=== PATIENT | male | born 1955 | race Caucasian/White ===

== ENCOUNTER → 2021-10-23 10:34 | Outpatient (BNVA) | payer OTHER, SELFPAY | PROVIDERS: Family Provider Family Medicine; Visit Provider Internal Medicine Cardiovascular Disease | DX: I10 Essential (primary) hypertension (principal); E11.9 Type 2 diabetes mellitus without complications; K21.9 Gastro-esophageal reflux disease without esophagitis; R25.1 Tremor, unspecified; N52.9 Male erectile dysfunction, unspecified; F17.210 Nicotine dependence, cigarettes, uncomplicated | CPT/HCPCS: 99204 ==

== ENCOUNTER → 2022-02-19 13:39 | Outpatient (BNVA) | payer OTHER, SELFPAY | PROVIDERS: Family Provider Family Medicine; PCP Family Medicine; Visit Provider Internal Medicine Cardiovascular Disease | DX: I10 Essential (primary) hypertension (principal); F17.210 Nicotine dependence, cigarettes, uncomplicated | CPT/HCPCS: 99213; 99214 ==

== ENCOUNTER 2025-01-09 09:45 | Oncology outpatient (recurring) (ONCR) | payer OTHER, SELFPAY ==
[2025-01-03 11:14] LABS: Hematocrit 45.7 % (37-53); Hemoglobin 15.40 g/dL (11.27-16.99); Mean Corpuscular HGB Conc 33.7 g/dL (30-55); Mean Corpuscular Hemoglobin 30.0 pg (27-33); Mean Corpuscular Volume 89.1 fl (82-101); Nucleated Red Blood Cells % 0 %; Platelet Count 281 10^3/cmm (157-399); Red Blood Count 5.13 10^6/uL (3.85-5.65); White Blood Count 8.90 10^3/uL (3.29-11.43)
[2025-01-03 11:33] LABS: Alanine Aminotransferase 16 U/L (0-41); Albumin Level 4.4 g/dL (3.5-5.2); Alkaline Phosphatase 66 U/L (40-130); Aspartate Amino Transferase 12 U/L (0-40); Blood Urea Nitrogen 19 mg/dL (8-23); Calcium 9.5 mg/dL (8.5-10.5); Carbon Dioxide 24 mmol/L (22-29); Chloride 104 mmol/L (98-107); Creatinine Clr Calc Pharmacy 81.2118; Ferritin 311 ng/mL (30-400); Globulin 3.0 g/dL (1.3-4.6); Glucose 112 mg/dL (65-115); Iron 95 ug/dL (59-158); Osmolality Calculated 291 mOsm/kg (285-295); Sodium 139 mmol/L (136-145); Total Iron Binding Capacity 299 mcg/dl; Total Protein 7.4 g/dL (6.6-8.7); Unsaturated Iron Binding 204 ug/dL (112-347)
[2025-01-03 11:37] LABS: Anion Gap 15.3 (5-19); Potassium 4.3 mmol/L (3.5-5.1)
[2025-01-03 11:49] LABS: Vitamin B12 498 pg/mL (232-1245)
[2025-01-03 12:48] LABS: Carcinoembryonic Antigen 3.0 ng/mL (0.0-4.7)
--- NOTE | 2025-01-09 08:27 | CT_ITS ---
WS: [id number] CT CHEST, ABDOMEN AND PELVIS WITH CONTRAST HISTORY: MALIGNANT NEOPLASM OF TRANSVERSE COLON TECHNIQUE: Contiguous 5 mm axial imaging performed through the chest, abdomen and pelvis with IV contrast, oral contrast has been provided. Coronal and sagittal reformats chest. Coronal and sagittal reformats through the abdomen and pelvis. All CT scans at [facility] use at least one of these dose optimization techniques: automated exposure control; mA and/or kV adjustment per patient size (includes targeted exams where dose is matched to clinical indication); or iterative reconstruction. CONTRAST: Omnipaque 350; 100 mL IV. DLP: 1221.75 mGy COMPARISON: 11/16/2024 and 10/26/[address]: Mild pulmonary hyperexpansion. No change in the 3 mm noncalcified nodule RIGHT lower lobe, image 40 series 4. No change in the small subcentimeter LEFT perifissural nodules. There is no dominant mass. No pneumonia. Normal size aorta and pulmonary artery. RIGHT suprahilar lymph node 10 mm. No adenopathy. No destructive bone lesions. Hypertrophic RIGHT lateral osteophytes in the midthoracic spine. No destructive bone lesions. Abdomen CT: Normal size liver. Patient has known small cyst scattered throughout the liver. These are reidentified as described on 10/26/2024 and a prior MRI from 11/14/2024. No metastatic lesions. Cholelithiasis without acute cholecystitis. Normal pancreas and spleen. Very mild thickening of each adrenal gland. Bilateral perinephric stranding with no obstruction. There are too small to characterize cortical hypodensities in each kidney. Mild atherosclerosis aorta. No ascites and no adenopathy. Stomach is not distended. No small bowel obstruction. Transverse colon anastomosis appears intact. There is mild fat stranding at the anastomotic site which may be due to the recent post surgery. There is no obstruction or mass. Fat-containing umbilical hernia. Pelvic CT: No ascites or adenopathy. Minimally distended urinary bladder. Prostate gland is heterogeneous with mild enlargement. Degenerative changes in the lumbar spine. Degenerative joint disease at the hips. No destructive lytic or blastic lesions identified. CT/CT chest abdpel w/*[id number] IMPRESSION: 1. No evidence for metastatic disease to the lungs. There are a few small nodu les which were also present on the prior study from 11/16/2024 with no change. 2. No lymphadenopathy in the chest, abdomen or pelvis. 3. Stable hepatic cyst. No metastatic disease to the liver. 4. Mild bilateral adrenal gland hyperplasia, similar to the prior study of 10/26. 5. Transverse colon surgical anastomosis appears intact. There is mild pericol onic fat stranding which is probably related to the recent surgery. No complica tions are evident. 6. No ascites. 7. Cholelithiasis without acute cholecystitis.
[2025-01-09] MEDS: iohexol 350 mg/mL 500 mL Btl (per mL) PO (09:44)
[2025-01-09] MEDS: iohexol 350 mg/mL 500 mL Btl (per mL) IV (09:45)
== END 2025-01-23 23:59 | disposition home or self-care (01) ==
PROVIDERS: PCP Family Medicine; Visit Provider Internal Medicine
DX: C18.4 Malignant neoplasm of transverse colon (principal); R91.8 Other nonspecific abnormal finding of lung field; K76.89 Other specified diseases of liver; E27.8 Other specified disorders of adrenal gland; Z98.890 Other specified postprocedural states; K80.20 Calculus of gallbladder without cholecystitis without obstruction; R59.0 Localized enlarged lymph nodes; M25.78 Osteophyte, vertebrae; R93.89 Abnormal findings on diagnostic imaging of other specified body structures; N28.9 Disorder of kidney and ureter, unspecified; I70.0 Atherosclerosis of aorta; K42.9 Umbilical hernia without obstruction or gangrene; N40.0 Benign prostatic hyperplasia without lower urinary tract symptoms; M51.369 Other intervertebral disc degeneration, lumbar region without mention of lumbar back pain or lower extremity pain; M16.0 Bilateral primary osteoarthritis of hip; Z53.9 Procedure and treatment not carried out, unspecified reason
CPT/HCPCS: 36415; 71260; 74177; 80053; 82378; 82607; 82728; 82746; 83010; 83540; 83550; 83615; 85025; 85045; 99204

== ENCOUNTER → 2025-01-15 14:03 | Outpatient (BNVA) | payer OTHER, SELFPAY | PROVIDERS: PCP Family Medicine; Visit Provider Student in an Organized Health Care Education/Training Program | DX: Z95.828 Presence of other vascular implants and grafts (principal); R03.0 Elevated blood-pressure reading, without diagnosis of hypertension | CPT/HCPCS: 99204 ==

== ENCOUNTER 2025-01-17 09:43 | Day surgery (SDC) | payer OTHER, SELFPAY ==
[2025-01-17] VITALS (7 sets, daily range): BP systolic 110–133; BP diastolic 50–66; PULSE 43–59; RESP 14–18; TEMP 36.2–36.8; O2SAT 95–100; BMI 29.4
--- NOTE | 2025-01-17 09:56 | SC_ITS ---
WS: [id number] Exam: C-arm FL for CVA [id number] Date/Time of Exam: 01/17/2025 9:56 AM Reason For Exam: Port placement DLP: AP C-arm image of the upper RIGHT chest is submitted for evaluation. The image depicts a RIGHT subclavian port ending in the lower one third of the SVC. No other significant finding on this limited study.
--- NOTE | 2025-01-17 10:29 | ANES.PREANE2 ---
Pre-Anesthetic Assessment Height/Weight: Height 1.88 m Weight 103.873 kg Temp Pulse Resp BP Pulse Ox O2 Del Method 97.4 F L 43 L 17 121/63 97 Room Air 01/17/25 10:01/17/25 10:01/17/25 10:01/17/25 10:01/17/25 10:01/17/25 10:12 Operation Date: 01/17/25 12:15 Proposed Procedures p Port a Cath Insertion [id number] Z95.828 C18.4(Not Applicable) - Dre Yeager MD Familial anesthetic complications: None Was Beta Iman taken within 24 hours: N/A Was Clonidine taken within 24 hours: N/A Last intake: > 8 hrs Social No alcohol and No tobacco Exam alert, oriented x 3, clear to auscultation bilaterally and regular rate & rhythm Airway Mallampati: Class III Dentition: full CV/HEM Hypertension GI Gastroesophageal Reflux Disease colon resection Metabolic Diabetes Mellitus and Morbid Obesity Neuropsych tremor Anesthetic Plan ASA status: 4 Anesthesia: MAC Risk of > 500 ml blood loss (7ml/kg in children): No Medications/Allergies Home Medications ?Medication ?Instructions ?Recorded ?Confirmed ?Last Taken ?Type omeprazole 20 mg capsule,delayed 20 mg PO DAILY 06/11/21 01/16/25 Unknown History release antiarthritic combination no.2 900 900 mg PO DAILY 10/23/21 01/16/25 01/16/25 History mg tablet (glucosamine-chondroitin) cholecalciferol (vitamin D3) 25 25 mcg PO DAILY 10/23/21 01/16/25 01/16/25 History mcg (1,000 unit) capsule garlic 5,000 mcg tablet 5 mg PO DAILY 10/23/21 01/16/25 01/16/25 History hydrochlorothiazide 25 mg tablet 12.5 mg PO BID 10/23/21 01/16/25 01/16/25 History lisinopril 20 mg tablet 40 mg PO DAILY 10/23/21 01/16/25 01/16/25 History omega-3 fatty acids 1,000 mg 1,000 mg PO DAILY 10/23/21 01/16/25 Unknown History capsule prenat.vits,lfaco,dag-zpvx-afslo 1 tab PO DAILY 10/23/21 01/16/25 Unknown History sildenafil 100 mg tablet 100 mg PO DAILY PRN activy 10/23/21 01/16/25 Unknown History zinc 50 mg tablet 50 mg PO DAILY 10/23/21 01/16/25 Unknown History ibuprofen 200 mg tablet 200 mg PO Q6H PRN Pain 02/19/22 01/16/25 Unknown History propranolol 40 mg tablet 20 mg PO BID 02/19/22 01/17/25 01/17/25 History vitamins A,C,M-ausb-pdvcfu 4,296 1 cap PO DAILY 02/19/22 01/16/25 Unknown History mcg-226 mg-90 mg capsule (ICaps AREDS) atorvastatin 40 mg tablet (Lipitor) 40 mg PO DAILY 01/03/25 01/16/25 01/16/25 History metformin 1,000 mg tablet 1,000 mg PO BID 01/03/25 01/16/25 01/16/25 History ondansetron HCl 4 mg tablet 4 mg PO Q6H PRN nausea and 01/03/25 01/16/25 Unknown Rx vomiting #30 tabs prochlorperazine maleate 10 mg 10 mg PO Q4H PRN mild nausea #30 01/03/25 01/16/25 Unknown Rx tablet (Compazine) tabs Allergies Allergy/AdvReac Type Severity Reaction Status Date / Time No Known Allergies Allergy Verified 01/17/25 10:03 Current Medications Generic Name Dose Route Start Last Admin Trade Name Freq PRN Reason Stop Dose Admin Sodium Chloride 1,000 mls @ 30 mls/hr 01/17/25 10:00 01/17/25 10:29 Sodium Chloride 0.9% IV 01/18/25 09:59 30 mls/hr .Q24H YAMILET Administration PFSH Anesthesia Medical History (Updated 01/15/25 @ 14:19 by RODDY Ornelas) History of cellulitis Tremor Erectile dysfunction Diabetes mellitus HTN (hypertension) GERD (gastroesophageal reflux disease) Surgical History (Updated 01/16/25 @ 11:16 by Belen Palma RN) S/P vasectomy No pertinent past surgical history Family History Mother Cardiac murmur, unspecified Congestive heart failure (CHF) Diabetes Father Hypertension Diabetes Family/Other Diabetes CAD (coronary artery disease) Social History Smoking and tobacco/nicotine status: current every day tobacco/nicotine user cigarettes Packs smoked per day: 2 Years cigarettes smoked: 20
--- NOTE | 2025-01-17 10:37 | W.PM.OPSUD ---
Surgery/Procedure H&P Update DATE OF PROCEDURE: January 17, 2025 DATE H&P PERFORMED: 01/15/25 H&P UPDATE INFORMATION: I have reviewed H&P completed within last 30 days, I have examined patient prior to procedure and No changes to prior documentation PLANNED PROCEDURE: Operation Date: 01/17/25 12:15 Proposed Procedures p Port a Cath Insertion [id number] Z95.828 C18.4(Not Applicable) - Dre Yeager MD
[2025-01-17] MEDS: ceFAZolin 2,000 mg SDV 2000 MG IVP (11:04)
[2025-01-17] MEDS: heparin, porcine 1,000 unit/mL INJ 10 mL 6000 UNIT XX (11:42)
--- NOTE | 2025-01-17 11:43 | P.OP_ITS ---
Operative Report Date of procedure: January 17, 2025 Pre-op diagnosis: Colon cancer Post-op diagnosis: same Post-op findings: Tip of catheter at atriocaval junction confirmed with intraoperative fluoroscopy Procedure done: Port-A-Cath placement Implants: N/A Specimens removed/disposition: N/A Pathology: none sent Surgeon: Dre Yeager MD Tar Man: N/A Anesthesia: MAC Estimated blood loss (mL): 10 Complications: N/A Findings: Tip of catheter at atriocaval junction confirmed with intraoperative fluoroscopy Condition: stable Disposition: same day Brief History: 69-year-old male who presented for Port-A-Cath placement. Needs it for chemotherapy administration. Discussed risk and benefits and patient agreed to proceed with Port-A-Cath placement. Procedure: Patient was brought into the operating room and a timeout was carried out. Procedure was done under MAC. Patient was placed supine with the arms tucked and in Trendelenburg. Patient was prepped and draped in the usual sterile fashion. Using ultrasound guidance the right internal jugular vein was accessed. A guidewire was then placed down to the atriocaval junction using fluoroscopy. The finder needle was removed and the guidewire was secured. I then turned my attention to creating a pocket over the right chest. Make sure to locally infiltrated using plain lidocaine and bupivacaine at the site of the pocket and throughout the tunnel site. I confirmed adequate hemostasis at the pocket. I then proceeded to place the port that was already preassembled and flushed with heparinized saline and the chest pocket. I tunneled the catheter from the chest to the neck at the site where I accessed the internal jugular vein. I measured and adjusted the length of the catheter so it would reach the atrial caval junction. At this point, I used a dilator to dilate the tract into the internal jugular vein using fluoroscopy. I removed the guidewire and proceeded to thread the central venous catheter through the introducer. In the process, I removed the sheath as a completely pushed the catheter into the internal jugular vein. I then confirmed adequate placement of the catheter by performing intraoperative interpretation of fluoroscopy. The tip of the catheter was confirmed to be placed in the atriocaval junction. There were no kinks noted throughout the trajectory of the catheter. I then proceeded to test the port and was satisfied with its functionality. I proceeded to flushed the catheter without any issues. I then hep-locked the port. Skin was closed using deep dermal 3-0 Vicryl, subcuticular 4-0 Monocryl, and Dermabond. Patient was then transferred to PACU without any complications.
[2025-01-17] MEDS: lidocaine-epi 1% 20 mL INJ 10 ML INJECTION (11:44)
[2025-01-17] MEDS: BUPivacaine 0.25% INJ 10 mL INJECTION (11:44)
--- NOTE | 2025-01-17 12:40 | ANE.PACU2 ---
Inpatient post-anesthesia follow up: Airway intact: Yes Vital signs: Temperature 97.2 F Pulse Rate 45 Respiratory Rate 17 Blood Pressure 122/65 Pulse Oximetry 100 Oxygen Delivery Me thod Room Air Oxygen Flow Rate 6 Fraction of Inspir ed Oxygen Hydration adequate: Yes Nausea and vomiting: No Pain level: 1 Mental status: Baseline
== END 2025-01-17 12:44 | disposition home or self-care (01) ==
PROVIDERS: PCP Family Medicine; Visit Provider Student in an Organized Health Care Education/Training Program
PROC: (CPT 36561; principal; 2025-01-17 12:05)
DX: C18.9 Malignant neoplasm of colon, unspecified (principal); K21.9 Gastro-esophageal reflux disease without esophagitis; I10 Essential (primary) hypertension; E11.9 Type 2 diabetes mellitus without complications; E66.01 Morbid (severe) obesity due to excess calories; Z68.29 Body mass index [BMI] 29.0-29.9, adult; Z79.84 Long term (current) use of oral hypoglycemic drugs; F17.210 Nicotine dependence, cigarettes, uncomplicated
CPT/HCPCS: 36561; 36416; 76000; 77001; 82962; C1788; J0690; J1644; J2704; J3010; J3490; J7030; J9999

== ENCOUNTER → 2025-01-29 10:25 | Outpatient (BNVA) | payer OTHER, SELFPAY | PROVIDERS: PCP Family Medicine; Visit Provider Student in an Organized Health Care Education/Training Program | DX: Z98.890 Other specified postprocedural states (principal) | CPT/HCPCS: 99024 ==

== ENCOUNTER 2025-02-23 11:00 | Oncology outpatient (recurring) (ONCR) | payer OTHER, SELFPAY ==
[2025-01-24 08:02] LABS: Hematocrit 45.4 % (37-53); Hemoglobin 15.00 g/dL (11.27-16.99); Mean Corpuscular HGB Conc 33.0 g/dL (30-55); Mean Corpuscular Hemoglobin 29.2 pg (27-33); Mean Corpuscular Volume 88.3 fl (82-101); Nucleated Red Blood Cells % 0 %; Platelet Count 261 10^3/cmm (157-399); Red Blood Count 5.14 10^6/uL (3.85-5.65); White Blood Count 7.67 10^3/uL (3.29-11.43)
[2025-01-24 08:34] LABS: Carcinoembryonic Antigen 3.5 ng/mL (0.0-4.7)
[2025-01-24 08:46] LABS: Alanine Aminotransferase 16 U/L (0-41); Albumin Level 4.5 g/dL (3.5-5.2); Alkaline Phosphatase 64 U/L (40-130); Anion Gap 16.4 (5-19); Aspartate Amino Transferase 14 U/L (0-40); Blood Urea Nitrogen 16 mg/dL (8-23); Calcium 9.3 mg/dL (8.5-10.5); Carbon Dioxide 25 mmol/L (22-29); Chloride 103 mmol/L (98-107); Creatinine Clr Calc Pharmacy 81.5985; Globulin 2.7 g/dL (1.3-4.6); Glucose 125 mg/dL (65-115); Osmolality Calculated 293 mOsm/kg (285-295); Potassium 4.4 mmol/L (3.5-5.1); Sodium 140 mmol/L (136-145); Total Protein 7.2 g/dL (6.6-8.7)
[2025-01-24] MEDS: dexamethasone 4 mg/mL INJ 5 mL 12 MG IVP (10:49)
[2025-01-24] MEDS: leucovorin 910 MG in dextrose 5% 250 ML 85.25 MG IV (11:25)
[2025-01-24] MEDS: oxaliplatin 192 MG in dextrose 5% 250 ML 144.2 MG IV (11:26)
[2025-01-24] MEDS: fluorouraciL 50 mg/ml MDV 100 mL 900 MG IVP (13:56)
[2025-01-24] MEDS: fluorouraciL 5,450 MG, elastomeric pump 1 PUMP in sodium chloride 0.9% (100 ml) 121 ML IV (14:07)
[2025-01-24 14:14] VITALS: BP 131/72; PULSE 53; RESP 17; TEMP 36.8; O2SAT 96
[2025-01-31 12:55] LABS: Hematocrit 44.2 % (37-53); Hemoglobin 14.80 g/dL (11.27-16.99); Mean Corpuscular HGB Conc 33.5 g/dL (30-55); Mean Corpuscular Hemoglobin 30.1 pg (27-33); Mean Corpuscular Volume 90.0 fl (82-101); Nucleated Red Blood Cells % 0 %; Platelet Count 256 10^3/cmm (157-399); Red Blood Count 4.91 10^6/uL (3.85-5.65); White Blood Count 8.24 10^3/uL (3.29-11.43)
[2025-01-31 13:12] LABS: Alanine Aminotransferase 16 U/L (0-41); Albumin Level 4.4 g/dL (3.5-5.2); Alkaline Phosphatase 67 U/L (40-130); Aspartate Amino Transferase 14 U/L (0-40); Blood Urea Nitrogen 21 mg/dL (8-23); Calcium 9.0 mg/dL (8.5-10.5); Carbon Dioxide 23 mmol/L (22-29); Chloride 103 mmol/L (98-107); Creatinine Clr Calc Pharmacy 81.3788; Globulin 2.5 g/dL (1.3-4.6); Glucose 162 mg/dL (65-115); Osmolality Calculated 291 mOsm/kg (285-295); Sodium 137 mmol/L (136-145); Total Protein 6.9 g/dL (6.6-8.7)
[2025-01-31 13:23] LABS: Anion Gap 15.0 (5-19); Potassium 4.0 mmol/L (3.5-5.1)
[2025-02-07 08:25] LABS: Hematocrit 41.8 % (37-53); Hemoglobin 13.90 g/dL (11.27-16.99); Mean Corpuscular HGB Conc 33.3 g/dL (30-55); Mean Corpuscular Hemoglobin 29.2 pg (27-33); Mean Corpuscular Volume 87.8 fl (82-101); Nucleated Red Blood Cells % 0 %; Platelet Count 229 10^3/cmm (157-399); Red Blood Count 4.76 10^6/uL (3.85-5.65); White Blood Count 7.60 10^3/uL (3.29-11.43)
[2025-02-07 08:44] LABS: Alanine Aminotransferase 19 U/L (0-41); Albumin Level 4.2 g/dL (3.5-5.2); Alkaline Phosphatase 65 U/L (40-130); Anion Gap 17.3 (5-19); Aspartate Amino Transferase 16 U/L (0-40); Blood Urea Nitrogen 18 mg/dL (8-23); Calcium 9.1 mg/dL (8.5-10.5); Carbon Dioxide 23 mmol/L (22-29); Chloride 101 mmol/L (98-107); Creatinine Clr Calc Pharmacy 74.5972; Globulin 2.6 g/dL (1.3-4.6); Glucose 118 mg/dL (65-115); Osmolality Calculated 287 mOsm/kg (285-295); Potassium 4.3 mmol/L (3.5-5.1); Sodium 137 mmol/L (136-145); Total Protein 6.8 g/dL (6.6-8.7)
[2025-02-07] MEDS: dexamethasone 4 mg/mL INJ 5 mL 12 MG IVP (09:45)
[2025-02-07] MEDS: leucovorin 910 MG in dextrose 5% 250 ML 85.25 MG IV (10:13)
[2025-02-07] MEDS: oxaliplatin 192 MG in dextrose 5% 250 ML 144.2 MG IV (10:13)
[2025-02-07] MEDS: fluorouraciL 50 mg/ml MDV 100 mL 900 MG IVP (12:49)
[2025-02-07] MEDS: fluorouraciL 5,450 MG, elastomeric pump 1 PUMP in sodium chloride 0.9% (100 ml) 121 ML IV (12:50)
[2025-02-07 12:59] VITALS: BP 149/76; PULSE 49; RESP 17; TEMP 36.2; O2SAT 96
[2025-02-21 08:01] LABS: Hematocrit 43.7 % (37-53); Hemoglobin 14.70 g/dL (11.27-16.99); Mean Corpuscular HGB Conc 33.6 g/dL (30-55); Mean Corpuscular Hemoglobin 29.6 pg (27-33); Mean Corpuscular Volume 88.1 fl (82-101); Nucleated Red Blood Cells % 0 %; Platelet Count 208 10^3/cmm (157-399); Red Blood Count 4.96 10^6/uL (3.85-5.65); White Blood Count 9.26 10^3/uL (3.29-11.43)
[2025-02-21 08:25] LABS: Carcinoembryonic Antigen 4.2 ng/mL (0.0-4.7)
[2025-02-21 08:36] LABS: Alanine Aminotransferase 23 U/L (0-41); Albumin Level 4.4 g/dL (3.5-5.2); Alkaline Phosphatase 69 U/L (40-130); Anion Gap 17.5 (5-19); Aspartate Amino Transferase 19 U/L (0-40); Blood Urea Nitrogen 19 mg/dL (8-23); Calcium 9.5 mg/dL (8.5-10.5); Carbon Dioxide 23 mmol/L (22-29); Chloride 98 mmol/L (98-107); Creatinine Clr Calc Pharmacy 90.1262; Globulin 2.7 g/dL (1.3-4.6); Glucose 118 mg/dL (65-115); Osmolality Calculated 281 mOsm/kg (285-295); Potassium 4.5 mmol/L (3.5-5.1); Sodium 134 mmol/L (136-145); Total Protein 7.1 g/dL (6.6-8.7)
[2025-02-21 09:14] VITALS: BP 133/62; PULSE 47; RESP 16; TEMP 36.3; O2SAT 96
[2025-02-21] MEDS: dexamethasone 4 mg/mL INJ 5 mL 12 MG IVP (09:43)
[2025-02-21] MEDS: leucovorin 910 MG in dextrose 5% 250 ML 85.25 MG IV (10:43)
[2025-02-21] MEDS: oxaliplatin 192 MG in dextrose 5% 250 ML 144.2 MG IV (10:43)
[2025-02-21] MEDS: fluorouraciL 50 mg/ml MDV 100 mL 900 MG IVP (12:59)
[2025-02-21] MEDS: fluorouraciL 5,450 MG, elastomeric pump 1 PUMP in sodium chloride 0.9% (100 ml) 121 ML IV (13:12)
[2025-02-21 13:25] VITALS: BP 135/54; PULSE 96; RESP 17; TEMP 35.9; O2SAT 96
== END 2025-02-23 23:59 | disposition home or self-care (01) ==
PROVIDERS: Nurse Practitioner Family; PCP Family Medicine; Visit Provider Internal Medicine
DX: Z45.1 Encounter for adjustment and management of infusion pump; Z95.828 Presence of other vascular implants and grafts; Z53.9 Procedure and treatment not carried out, unspecified reason
CPT/HCPCS: 36591; 80053; 82378; 85025; 96366; 96368; 96375; 96411; 96413; 96415; 96416; 96523; 99214; 99215; J0640; J1100; J2469; J7060; J9190; J9263

== ENCOUNTER 2025-03-09 09:00 | Oncology outpatient (recurring) (ONCR) | payer OTHER, SELFPAY ==
[2025-03-07 08:14] LABS: Hematocrit 43.3 % (37-53); Hemoglobin 14.60 g/dL (11.27-16.99); Mean Corpuscular HGB Conc 33.7 g/dL (30-55); Mean Corpuscular Hemoglobin 30.0 pg (27-33); Mean Corpuscular Volume 89.1 fl (82-101); Nucleated Red Blood Cells % 0 %; Platelet Count 159 10^3/cmm (157-399); Red Blood Count 4.86 10^6/uL (3.85-5.65); White Blood Count 6.79 10^3/uL (3.29-11.43)
[2025-03-07 08:37] LABS: Alanine Aminotransferase 29 U/L (0-41); Albumin Level 4.3 g/dL (3.5-5.2); Alkaline Phosphatase 66 U/L (40-130); Anion Gap 16.6 (5-19); Aspartate Amino Transferase 28 U/L (0-40); Blood Urea Nitrogen 21 mg/dL (8-23); Calcium 9.2 mg/dL (8.5-10.5); Carbon Dioxide 23 mmol/L (22-29); Chloride 99 mmol/L (98-107); Globulin 2.6 g/dL (1.3-4.6); Glucose 114 mg/dL (65-115); Osmolality Calculated 282 mOsm/kg (285-295); Potassium 4.6 mmol/L (3.5-5.1); Sodium 134 mmol/L (136-145); Total Protein 6.9 g/dL (6.6-8.7)
[2025-03-07 09:37] VITALS: BP 127/57; PULSE 47; RESP 16; TEMP 36.4; O2SAT 94
[2025-03-07] MEDS: dexamethasone 4 mg/mL INJ 5 mL 12 MG IVP (10:20)
[2025-03-07] MEDS: OXALIPLATIN IV (10:57)
[2025-03-07] MEDS: DEXTROSE 5% IV (10:57)
[2025-03-07] MEDS: leucovorin 900 MG in dextrose 5% 250 ML 85 MG IV (10:57)
[2025-03-07] MEDS: fluorouraciL 50 mg/ml MDV 100 mL 900 MG IVP (13:11)
[2025-03-07] MEDS: fluorouraciL 5,400 MG, elastomeric pump 1 PUMP in sodium chloride 0.9% (100 ml) 122 ML IV (13:11)
[2025-03-07 13:29] VITALS: BP 149/80; PULSE 62; RESP 17; TEMP 36.4; O2SAT 95
== END 2025-03-23 09:00 | disposition still patient (30) ==
PROVIDERS: Nurse Practitioner Family; PCP Family Medicine; Visit Provider Internal Medicine
DX: Z45.1 Encounter for adjustment and management of infusion pump (principal); Z95.828 Presence of other vascular implants and grafts; Z53.9 Procedure and treatment not carried out, unspecified reason
CPT/HCPCS: 80053; 85025; 96368; 96375; 96411; 96413; 96415; 96416; 96523; 99213; J0640; J1100; J2469; J7030; J7060; J9190; J9263

== ENCOUNTER 2025-03-23 09:33 | Emergency (ER) | payer OTHER, SELFPAY ==
[2025-03-23 09:49] VITALS: BP 133/72; PULSE 58; RESP 16; TEMP 36.7; O2SAT 98; BMI 30.9
--- OUTSIDE RECORDS SUMMARY | 2025-03-23 09:52 | XMS_ITS | Clinical Summary ---
Author Organization [facility] Address [address] [place] [id number] Care Team Providers Care Smt Machine Operator Name Role Phone Unavailable Primary Care Provider Unavailabl e Allergies No known active allergies Medications lisinopril (PRINIVIL) 20 mg tablet Take 20 mg by mouth daily. 08/06/2016 Active omeprazole (PriLOSEC) 20 mg Capsule, Delayed Release(E.C.) Take 20 mg by mouth daily. 07/06/2016 Active ibuprofen (MOTRIN) 800 mg tablet Take 1 Tablet (800 mg) by mouth every 6 hours as needed for Pain, Mild. 90 Tablet 1 08/12/2016 Active OMEGA-3 FATTY ACIDS (FISH OIL ORAL) Take by mouth. Active VITAMIN E ORAL Take by mouth. Active ERGOCALCIFEROL, VITAMIN D2, (VITAMIN D ORAL) Take by mouth. Active Active Problems No known active problems Social History Tobacco Use Types Packs/Day Years Used Date Smoking Tobacco: Every Day Cigarettes Smokeless Tobacco: Never Tobacco Cessation:Ready to Q uit: No; Counseling Given: No Alcohol Use Standard Drinks/Week Comments No 0 (1 standard drink = 0.6 oz pur e alcohol) Sex and Gender Information Value Date Recorded Sex Assigned at Not on file Legal Sex Male 10:58 AM CDT Gender Identity Not on file Sexual Orientation Not on file Last Filed Vital Signs Vital Sign Reading Time Taken Comments Blood Pressure 124/70 10/02/2016 8:40 AM CDT Pulse 69 10/02/2016 8:40 AM CDT Temperature 36.8 C (98.2 F) 10/02/2016 8:40 AM CDT Respiratory Rate 20 10/02/2016 8:40 AM CDT Oxygen Saturation 95% 10/02/2016 8:40 AM CDT Inhaled Oxygen Concentration - - Weight 105.1 kg (231 lb 12.8 oz) 10/02/2016 8:40 AM CDT Height 177.8 cm (5' 10 ) 10/02/2016 8:40 AM CDT Body Mass Index 33.26 10/02/2016 8:40 AM CDT Plan of Treatment Health Maintenance Due Date Last Done Comments DTAP/TDAP/TD VACCINES (1 - Tdap) 1976 PNEUMOCOCCAL VACCINE 50+ YEARS (1 of 2 - PCV) 05/04/18 77 COLORECTAL SCREENING 2002 Colorectal Cancer Screening 2002 FIT-DNA Q 3 years 2002 FIT/FOBT Q 1 year 2002 Flex Sig/CT Colonography Q 5 years 2002 ZOSTER VACCINE (1 of 2) 2007 INFLUENZA VACCINE (#1) 2024 RSV VACCINE (60+ or ) (1 - 1-dose 75+ series) 2032 Insurance [facility] [place] [id number]
--- OUTSIDE RECORDS SUMMARY | 2025-03-23 09:52 | XMS_ITS | Clinical Summary ---
Author Organization [facility] Address [address] [facility] Attn: Epic Prelude ADT MAR KHAN [id number] Care Team Providers Care Manager Country Name Role Phone Unavailable Primary Care Provider Unavailabl e Allergies No known active allergies Medications ibuprofen (MOTRIN) 800 mg tablet Take 1 Tablet (800 mg) by mouth every 6 hours as needed for Pain, Mild. 90 Tablet 1 08/12/2016 Active VITAMIN E ORAL Take by mouth. 09/18/2016 Active lisinopriL (PRINIVIL) 20 mg tablet Take 20 mg by mouth daily. 08/06/2016 Active docosahexaenoic acid/epa (FISH OIL ORAL) Take by mouth. 09/18/2016 Active ergocalciferol, vitamin D2, (VITAMIN D ORAL) Take by mouth. 09/18/2016 Active omeprazole (PriLOSEC) 20 mg Capsule, Delayed Release(E.C.) Take 20 mg by mouth daily. 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 Gender Identity Not on file Sexual Orientation Not on file Last Filed Vital Signs Vital Sign Reading Time Taken Comments Blood Pressure 124/70 10/02/2016 8:40 AM CDT Pulse 69 10/02/2016 8:40 AM CDT Temperature 36.8 C (98.2 F) 10/02/2016 8:40 AM CDT Respiratory Rate 20 10/02/2016 8:40 AM CDT Oxygen Saturation - - Inhaled Oxygen Concentration - - Weight 105.1 kg (231 lb 12.8 oz) 10/02/2016 8:40 AM CDT Height 177.8 cm (5' 10 ) 10/02/2016 8:40 AM CDT Body Mass Index 33.26 10/02/2016 8:40 AM CDT Plan of Treatment Health Maintenance Due Date Last Done Comments DTAP/TDAP/TD VACCINES (1 - Tdap) 1976 COLORECTAL SCREENING 2002 Colorectal Cancer Screening 2002 FIT-DNA Q 3 years 2002 FIT/FOBT Q 1 year 2002 Flex Sig/CT Colonography Q 5 years 2002 PNEUMOCOCCAL VACCINE 50+ YEARS (1 of 1 - PCV) 05/04/19 08 ZOSTER VACCINE (1 of 2) 2007 INFLUENZA VACCINE (#1) 2024 RSV VACCINE (60+ or ) (1 - 1-dose 75+ series) 2032
[2025-03-23 09:53] VITALS: BP 133/72; PULSE 56; RESP 16; O2SAT 96
--- NOTE | 2025-03-23 10:06 | CTR_ITS ---
PROCEDURE INFORMATION: Exam: CT Neck With Contrast Exam date and time: 03/23/2025 11:15 AM Age: 69 years old Clinical indication: Other: R sided neck swelling, tongue swelling TECHNIQUE: Imaging protocol: Computed tomography of the neck with contrast. Radiation optimization: All CT scans at this facility use at least one of these dose optimization techniques: automated exposure control; mA and/or kV adjustment per patient size (includes targeted exams where dose is matched to clinical indication); or iterative reconstruction. Contrast material: OMNI 350; Contrast volume: 80 ml; Contrast route: INTRAVENOUS (IV); COMPARISON: CT chest abdpel w/*[id number] 01/09/2025 9:36 AM RADIATION DOSE METRICS: Total DLP (mGy-cm): 337.44 FINDINGS: Salivary glands: Normal. Glands are normal in size. Pharynx: Asymmetric soft tissue swelling of the posterior right tongue, best appreciated on coronal imaging (series 5, image 75). Larynx: Unremarkable. Epiglottis is normal. Thyroid: Normal. No enlarged or calcified nodules. Trachea: Visualized trachea is unremarkable. Lungs: Unremarkable as visualized. Lymph nodes: Unremarkable. No lymphadenopathy. Bones/joints: Unremarkable. No acute fracture. Soft tissues: Unremarkable. No significant soft tissue swelling. CT/CT neck w con* [id number] IMPRESSION: Asymmetric soft tissue swelling of the posterior right tongue, best appreciated on coronal imaging (series 5, image 75). Consider direct visualization and ENT consult
--- NOTE | 2025-03-23 10:08 | ED_ITS ---
Documented by User: JOANNA Fulton 03/23/25 12:18 HPI - Neck Pain/Injury 2 General: Chief Complaint: Upper Respiratory Infection Stated Complaint: lump on gutierrez apple (clear airway) Time Seen by Provider: 03/23/25 09:49 Source: patient Mode of arrival: ambulatory Limitations: no limitations History of Present Illness: Patient is a very nice 69-year-old who presents to the ED today with a main complaint of neck swelling . Patient states he noticed around 1030 yesterday evening after awakening from sleep, that he had a mass in my neck . He feels like this has somewhat subsided upon arrival but states he has been noticing worsening swelling and pain to the right side of his neck for some time now . [facility] and gland [facility] but has been told by them that my neck is a hot inflamed mess . He states he has had x-ray imaging of the neck but no advanced imaging. Patient states he is undergoing chemotherapy for colon cancer and is not sure if this has anything to do with it. He later tells me that this morning while brushing his teeth he feels like he bit the right side of his tongue and has now noticed significant swelling to the right side of his tongue and feels like he is not talking right . Denies difficulty breathing. No known history of allergies. Patient does take lisinopril. MD complaint: neck pain and other (neck swelling, tongue swelling) Onset (ago): day(s) Place: home Radiation: right lateral Severity: moderate Duration: constant Relieving factors: none Exacerbating factors: none Associated symptoms: Denies dizziness or headache(s) Treatments prior to arrival: none Related Data Home Medications ?Medication ?Instructions ?Recorded ?Confirmed ibuprofen 200 mg tablet 200 mg PO Q6H PRN Pain 02/1903/07/25 atorvastatin 40 mg tablet (Lipitor) 40 mg PO DAILY 02/1703/07/25 hydrochlorothiazide 25 mg tablet 12.5 mg PO QAM 03/07/25 pantoprazole 40 mg tablet,delayed 40 mg PO DAILY 01/2403/07/25 release metformin 1,000 mg tablet 1,000 mg PO BID 02/07/2504/19 propranolol 20 mg tablet 10 mg PO DAILY 02/07/2502/24 Previous Rx's ?Medication ?Instructions ?Recorded ondansetron HCl 4 mg tablet 4 mg PO Q6H PRN nausea and 01/03/25 vomiting #30 tabs prochlorperazine maleate 10 mg 10 mg PO Q4H PRN mild n ausea #30 01/03/25 tablet (Compazine) tabs Allergies Allergy/AdvReac Type Severity Reaction Status Date / Time No Known Allergies Allergy Verified 03/07/25 08:40 Review of Systems 2 Const: Denies: fever(s), chills, body aches or fatigue Eyes: Denies: change in vision, blurry vision, photophobia, eye discomfort or eye discharge ENMT: Reports: swelling of lips/tongue (R tongue); Denies: throat pain, uvular edema, enlarged tonsils, odynophagia, oral sores, ear or mastoid pain, ear discharge, nasal discharge, nasal congestion, post nasal drip or sinus pain Resp: Denies: productive cough or non-productive cough Musc: Reports: neck pain Neuro: Denies: headache(s) or dizziness All/Imm: Denies: facial swelling or seasonal rhinorrhea PFSH ED 2 PFSH: Medical History History of cellulitis Tremor Erectile dysfunction Diabetes mellitus HTN (hypertension) GERD (gastroesophageal reflux disease) Surgical History S/P vasectomy No pertinent past surgical history Family History Mother Cardiac murmur, unspecified Congestive heart failure (CHF) Diabetes Father Hypertension Diabetes Family/Other Diabetes CAD (coronary artery disease) Social History Smoking and tobacco/nicotine status: current every day tobacco/nicotine user cigarettes Packs smoked per day: 2 Years cigarettes smoked: 20 Physical Exam 2 Const: COMMON NORMALS: no acute distress, patient oriented x3, no limitations, alert and well nourished GENERAL APPEARANCE: cooperative O RIENTATION/CONSCIOUSNESS: Yes awake, Yes oriented to person, Yes oriented to place and Yes oriented to time HENMT: COMMON NORMALS: normocephalic, atraumatic, external ears normal and EAC's normal HEAD & SCALP: normal to inspection, normocephalic and atraumatic FACE & SINUS: normal facial exam EXTERNAL EAR: Yes external ears normal and Yes mastoids normal EXTERNAL AUDITORY CANAL: EAC's normal TYMPANIC MEMBRANE: TM abnormal (bilateral effusion) MOUTH: Normal oral and palatal mucosa present, lip normal, tongue abnormal (edema to R side of tongue) and other (floor of mouth is not elevated, no bull neck ) TEETH & GINGIVA: Yes caries and Yes poor dentition THROAT: posterior oropharynx normal and tonsils normal; no uvular edema Eye: COMMON NORMALS: Equal, round and reactive pupils present and EOMs intact bilaterally GENERAL EYE: appearance normal, both eyes and all related structures and normal light reflex PUPIL: Yes Equal, round and reactive pupils present DIRECT OPHTHALMOSCOPY: Yes normal light reflex Neck/C-Spine: COMMON NORMALS: full ROM and no meningeal signs GENERAL: No anterior neck swelling and No submandibular swelling OTHER: TTP/reported swelling R side of neck Resp: COMMON NORMALS: normal respiratory effort and clear to auscultation bilaterally AUSCULTATION: clear to auscultation bilaterally Cardio: COMMON NORMALS: regular rate and regular rhythm RATE: regular rate RHYTHM: regular rhythm Extremity: GENERAL: Yes normal exam except as noted Neuro: JACKIE COMA SCALE: document GCS findings Ira coma scale eye opening: Spontaneous Jackie coma scale verbal response: Orientated Ira coma scale motor response: Obey commands Jackie coma scale total score: 15 COMMON NORMALS: patient oriented x3, moves all extremities, no focal motor deficits and no sensory deficits noted SENSORIUM/ORIENTATION: Yes alert, Yes oriented to person, Yes oriented to place and Yes oriented to time MENINGEAL SIGNS: Yes no meningeal signs Skin: COMMON NORMALS: no rashes or lesions noted GENERAL SKIN EXAM: no rashes or lesions noted Course 2 Vital Signs: Vital signs: Vital Signs Temperature 98.0 F 03/23/25 09:49 Pulse Rate 53 L 03/23/25 12:09 Respiratory Rate 16 03/23/25 10:39 Blood Pressure 137/82 03/23/25 12:09 Pulse Oximetry 99 03/23/25 12:09 Oxygen Delivery Me thod Room Air 03/23/25 11:16 MDM - Neck Pain/Injury Medical Decision Making Patient is a nice 69-year-old male here for 2 separate complaints. He has been having pain to the right side of his neck for quite some time. [facility] He was concerned given his cancer history. CT scan of his neck did not reveal anything abnormal to the right side of his neck. He did have a separate complaint this morning that he bit his tongue and feels like it swelled after this. Clinically patient has angioedema involving the right side of his tongue. This most likely is why he bit it. He is on an HAYES inhibitor, lisinopril. They did see asymmetrical swelling to the right side of his tongue on CT scan. Patient was given IM epinephrine as well as Solu-Medrol and Benadryl even though these would be unlikely beneficial an HAYES inhibitor induced angioedema. Upon reexamination, patient feels about the same. He does have some mild swelling to the right side floor of his mouth now. I do not have any concern for Merle's. Patient was encouraged to stay overnight in observation in case symptoms were to worsen but he adamantly would like to go home. We did discuss the risks of this including loss of airway making intubation difficult or impossible. Discussed possibility of tracheotomy and if this failed eventually could lead to . He verbalized understanding of this and would still like to go home. Encouraged to contact 911 immediately if symptoms were to worsen. He is to discontinue his lisinopril and place HAYES inhibitors on his allergy list. Patient was also assessed by Dr. Lu and agrees with care provided here in the emergency department. He is aware that patient is leaving AMA. Medical Records I reviewed the patient's medical records. Lab Data I reviewed the patient's lab results. 03/23/25 10:29 03/23/25 10:[address] 03/23/25 10:06 IMPRESSION: Asymmetric soft tissue swelling of the posterior right tongue, best appreciated on coronal imaging (series 5, image 75). Consider direct visualization and ENT consult Laboratory Results WBC 7.00 10^3/uL (3.29-11.43) 03/23/25 10: RBC 4.61 10^6/uL (3.85-5.65) 03/23/25 10:29 Hgb 13.70 g/dL (11.27-16.99) 03/23/25 10: Hct 40.9 % (37-53) 03/23/25 10:29 MCV 88.7 fl (82-101) 03/23/25 10:29 MCH 29.7 pg (27-33) 03/23/25 10: MCHC 33.5 g/dL (30-55) 03/23/25 10:29 RDW 15.2 % (12.1-15.1) H 03/23/25 10:29 Plt Count 208 10^3/cmm (157-399) 03/23/25 10:29 MPV 9.3 fL (7.4-10.4) 03/23/25 10:29 Neut % (Auto) 55.5 % 03/23/25 10:29 Lymph % (Auto) 23.4 % 03/23/25 10:29 [place] % (Auto) 19.4 % 03/23/25 10:29 Eos % (Auto) 0.9 % 03/23/25 10:29 Baso % (Auto) 0.4 % 03/23/25 10:29 Neut # (Auto) 3.88 10^3/uL (1.8-7.7) 03/23/25 10:29 Lymph # (Auto) 1.6 10^3/uL (0.8-4.8) 03/23/25 10:29 [place] # (Auto) 1.4 10^3/uL (0.2-0.9) H 03/23/25 10:29 Eos # (Auto) 0.1 10^3/uL (0.0-0.8) 03/23/25 10:29 Baso # (Auto) 0.0 10^3/uL (0.0-0.1) 03/23/25 10:29 Nucleated RBC % (auto) 0 % 03/23/25 10:29 Nucleated RBCs # 0.0 /100WBC 03/23/25 10:29 Sodium 130 mmol/L (136-145) L 03/23/25 10:29 Potassium 4.1 mmol/L (3.5-5.1) 03/23/25 10:29 Chloride 98 mmol/L (98-107) 03/23/25 10:29 Carbon Dioxide 20 mmol/L (22-29) L 03/23/25 10:29 Anion Gap 16.1 (5-19) 03/23/25 10:29 BUN 16 mg/dL (8-23) 03/23/25 10:29 Creatinine 0.9 mg/dL (0.7-1.2) 03/23/25 10:29 GFR Calculation 84.2 mL/min (90-130) L 03/23/25 10:29 Glucose 106 mg/dL (65-115) 03/23/25 10:29 Calculated Osmolality 272 mOsm/kg (285-295) L 03/23/25 10:29 Calcium 9.0 mg/dL (8.5-10.5) 03/23/25 10:29 Total Bilirubin 0.8 mg/dL (0.15-1.2) 03/23/25 10:29 AST 20 U/L (0-40) 03/23/25 10:29 ALT 28 U/L (0-41) 03/23/25 10:29 Alkaline Phosphatase 65 U/L (40-130) 03/23/25 10:29 Total Protein 7.3 g/dL (6.6-8.7) 03/23/25 10:29 Albumin 3.9 g/dL (3.5-5.2) 03/23/25 10:29 Globulin 3.4 g/dL (1.3-4.6) 03/23/25 10:29 All radiology interpretation(s) finalized by discharge Discharge Plan Discharge Patient Disposition: Left Against Medical Advice Clinical Impression: 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) Condition: Stable Prescriptions: Discontinued lisinopril 40 mg tablet 40 mg PO DAILY No Action ibuprofen 200 mg tablet 200 mg PO Q6H PRN (Reason: Pain) pantoprazole 40 mg tablet,delayed release (DR/EC) 40 mg PO DAILY propranolol 20 mg tablet 10 mg PO DAILY hydrochlorothiazide 25 mg tablet 12.5 mg PO QAM atorvastatin [Lipitor] 40 mg tablet 40 mg PO DAILY metformin 1,000 mg tablet 1,000 mg PO BID ondansetron HCl 4 mg tablet 4 mg PO Q6H PRN (Reason: nausea and vomiting) Qty: 30 3RF prochlorperazine maleate [Compazine] 10 mg tablet 10 mg PO Q4H PRN (Reason: mild nausea) Qty: 30 3RF Referrals: Krystin Garnett MD [Primary Care Provider, Family Practice] Activity Restrictions/Additional Instructions: As we discussed, you need to discontinue your Lisinopril. You need to add this medication as well as all HAYES inhibitors to your allergy and list your allergy as ANGIOEDEMA. We did recommend you stay overnight for continued observation but you are declining and would like to go home. We did discuss risks of this including worsening tongue swelling, loss of airway, inability to intubate due to the angioedema, possibility of tracheostomy but if this failed, it could result in . You have understood these risks and expressed verbal understanding and are still electing to go home. We discussed that you need to call 911 immediately for any worsening of your symptoms. Print Language: Citizen Of [place] Coding Level of Care Code ED Friend Of The Court for Chg Fwd Documented by User: Flaco Lu MD 03/23/25 12:43 HPI - Neck Pain/Injury 2 General: Chief Complaint: Upper Respiratory Infection Stated Complaint: lump on gutierrez apple (clear airway) Time Seen by Provider: 03/23/25 09:49 Related Data Home Medications ?Medication ?Instructions ?Recorded ?Confirmed ibuprofen 200 mg tablet 200 mg PO Q6H PRN Pain 02/1903/07/25 atorvastatin 40 mg tablet (Lipitor) 40 mg PO DAILY 02/1703/07/25 hydrochlorothiazide 25 mg tablet 12.5 mg PO QAM 03/07/25 pantoprazole 40 mg tablet,delayed 40 mg PO DAILY 01/2403/07/25 release metformin 1,000 mg tablet 1,000 mg PO BID 02/07/2504/19 propranolol 20 mg tablet 10 mg PO DAILY 02/07/2502/24 Previous Rx's ?Medication ?Instructions ?Recorded ondansetron HCl 4 mg tablet 4 mg PO Q6H PRN nausea and 01/03/25 vomiting #30 tabs prochlorperazine maleate 10 mg 10 mg PO Q4H PRN mild n ausea #30 01/03/25 tablet (Compazine) tabs Allergies Allergy/AdvReac Type Severity Reaction Status Date / Time No Known Allergies Allergy Verified 03/07/25 08:40 PFS ED 2 PFS: Medical History History of cellulitis Tremor Erectile dysfunction Diabetes mellitus HTN (hypertension) GERD (gastroesophageal reflux disease) Surgical History S/P vasectomy No pertinent past surgical history Family History Mother Cardiac murmur, unspecified Congestive heart failure (CHF) Diabetes Father Hypertension Diabetes Family/Other Diabetes CAD (coronary artery disease) Social History (Reviewed 03/23/25 @ 10: by JOANNA Fulton) Smoking and tobacco/nicotine status: current every day tobacco/nicotine user cigarettes Packs smoked per day: 2 Years cigarettes smoked: 20 Physical Exam 2 Neuro: JACKIE COMA SCALE: document GCS findings Ira coma scale total score: 15 Course 2 Vital Signs: Vital signs: Vital Signs Temperature 98.0 F 03/23/25 09:49 Pulse Rate 53 L 03/23/25 12:09 Respiratory Rate 16 03/23/25 10:39 Blood Pressure 137/82 03/23/25 12:09 Pulse Oximetry 99 03/23/25 12:09 Oxygen Delivery Me thod Room Air 03/23/25 11:16 MDM - Neck Pain/Injury Medical Decision Making Patient is a nice 69-year-old male here for 2 separate complaints. He has been having pain to the right side of his neck for quite some time. [facility] He was concerned given his cancer history. CT scan of his neck did not reveal anything abnormal to the right side of his neck. He did have a separate complaint this morning that he bit his tongue and feels like it swelled after this. Clinically patient has angioedema involving the right side of his tongue. This most likely is why he bit it. He is on an HAYES inhibitor, lisinopril. They did see asymmetrical swelling to the right side of his tongue on CT scan. Patient was given IM epinephrine as well as Solu-Medrol and Benadryl even though these would be unlikely beneficial an HAYES inhibitor induced angioedema. Upon reexamination, patient feels about the same. He does have some mild swelling to the right side floor of his mouth now. I do not have any concern for Merle's. Patient was encouraged to stay overnight in observation in case symptoms were to worsen but he adamantly would like to go home. We did discuss the risks of this including loss of airway making intubation difficult or impossible. Discussed possibility of tracheotomy and if this failed eventually could lead to . He verbalized understanding of this and would still like to go home. Encouraged to contact 911 immediately if symptoms were to worsen. He is to discontinue his lisinopril and place HAYES inhibitors on his allergy list. Patient was also assessed by Dr. Lu and agrees with care provided here in the emergency department. He is aware that patient is leaving AMA. I saw patient with above midlevel does appear to have angioedema likely from his lisinopril. Patient did not want to stay he signed AGAINST MEDICAL ADVICE was explained to him his angioedema could worsen and could be life-threatening he understood this and signed out. Lab Data 03/23/25 10:29 03/23/25 10:[address] 03/23/25 10:06 IMPRESSION: Asymmetric soft tissue swelling of the posterior right tongue, best appreciated on coronal imaging (series 5, image 75). Consider direct visualization and ENT consult Laboratory Results WBC 7.00 10^3/uL (3.29-11.43) 03/23/25 10: RBC 4.61 10^6/uL (3.85-5.65) 03/23/25 10:29 Hgb 13.70 g/dL (11.27-16.99) 03/23/25 10:29 Hct 40.9 % (37-53) 03/23/25 10: MCV 88.7 fl (82-101) 03/23/25 10: MCH 29.7 pg (27-33) 03/23/25 10: MCHC 33.5 g/dL (30-55) 03/23/25 10: RDW 15.2 % (12.1-15.1) H 03/23/25 10:29 Plt Count 208 10^3/cmm (157-399) 03/23/25 10: MPV 9.3 fL (7.4-10.4) 03/23/25 10:29 Neut % (Auto) 55.5 % 03/23/25 10:29 Lymph % (Auto) 23.4 % 03/23/25 10:29 [place] % (Auto) 19.4 % 03/23/25 10:29 Eos % (Auto) 0.9 % 03/23/25 10:29 Baso % (Auto) 0.4 % 03/23/25 10:29 Neut # (Auto) 3.88 10^3/uL (1.8-7.7) 03/23/25 10:29 Lymph # (Auto) 1.6 10^3/uL (0.8-4.8) 03/23/25 10:29 [place] # (Auto) 1.4 10^3/uL (0.2-0.9) H 03/23/25 10:29 Eos # (Auto) 0.1 10^3/uL (0.0-0.8) 03/23/25 10: Baso # (Auto) 0.0 10^3/uL (0.0-0.1) 03/23/25 10:29 Nucleated RBC % (auto) 0 % 03/23/25 10:29 Nucleated RBCs # 0.0 /100WBC 03/23/25 10:29 Sodium 130 mmol/L (136-145) L 03/23/25 10:29 Potassium 4.1 mmol/L (3.5-5.1) 03/23/25 10: Chloride 98 mmol/L (98-107) 03/23/25 10: Carbon Dioxide 20 mmol/L (22-29) L 03/23/25 10:29 Anion Gap 16.1 (5-19) 03/23/25 10:29 BUN 16 mg/dL (8-23) 03/23/25 10:29 Creatinine 0.9 mg/dL (0.7-1.2) 03/23/25 10:29 GFR Calculation 84.2 mL/min (90-130) L 03/23/25 10:29 Glucose 106 mg/dL (65-115) 03/23/25 10:29 Calculated Osmolality 272 mOsm/kg (285-295) L 03/23/25 10:29 Calcium 9.0 mg/dL (8.5-10.5) 03/23/25 10:29 Total Bilirubin 0.8 mg/dL (0.15-1.2) 03/23/25 10:29 AST 20 U/L (0-40) 03/23/25 10:29 ALT 28 U/L (0-41) 03/23/25 10:29 Alkaline Phosphatase 65 U/L (40-130) 03/23/25 10:29 Total Protein 7.3 g/dL (6.6-8.7) 03/23/25 10:29 Albumin 3.9 g/dL (3.5-5.2) 03/23/25 10:29 Globulin 3.4 g/dL (1.3-4.6) 03/23/25 10:29 Discharge Plan Discharge Patient Disposition: Left Against Medical Advice Clinical Impression: 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) Condition: Stable Prescriptions: Discontinued lisinopril 40 mg tablet 40 mg PO DAILY No Action ibuprofen 200 mg tablet 200 mg PO Q6H PRN (Reason: Pain) pantoprazole 40 mg tablet,delayed release (DR/EC) 40 mg PO DAILY propranolol 20 mg tablet 10 mg PO DAILY hydrochlorothiazide 25 mg tablet 12.5 mg PO QAM atorvastatin [Lipitor] 40 mg tablet 40 mg PO DAILY metformin 1,000 mg tablet 1,000 mg PO BID ondansetron HCl 4 mg tablet 4 mg PO Q6H PRN (Reason: nausea and vomiting) Qty: 30 3RF prochlorperazine maleate [Compazine] 10 mg tablet 10 mg PO Q4H PRN (Reason: mild nausea) Qty: 30 3RF Referrals: Krystin Garnett MD [Primary Care Provider, [facility]] Activity Restrictions/Additional Instructions: As we discussed, you need to discontinue your Lisinopril. You need to add this medication as well as all HAYES inhibitors to your allergy and list your allergy as ANGIOEDEMA. We did recommend you stay overnight for continued observation but you are declining and would like to go home. We did discuss risks of this including worsening tongue swelling, loss of airway, inability to intubate due to the angioedema, possibility of tracheostomy but if this failed, it could result in . You have understood these risks and expressed verbal understanding and are still electing to go home. We discussed that you need to call 911 immediately for any worsening of your symptoms. Print Language: Citizen Of [place] Coding Level of Care Code ED Friend Of The Court for Caleb Molina
[2025-03-23 10:36] LABS: Hematocrit 40.9 % (37-53); Hemoglobin 13.70 g/dL (11.27-16.99); Mean Corpuscular HGB Conc 33.5 g/dL (30-55); Mean Corpuscular Hemoglobin 29.7 pg (27-33); Mean Corpuscular Volume 88.7 fl (82-101); Nucleated Red Blood Cells % 0 %; Platelet Count 208 10^3/cmm (157-399); Red Blood Count 4.61 10^6/uL (3.85-5.65); White Blood Count 7.00 10^3/uL (3.29-11.43)
[2025-03-23 10:39] VITALS: BP 133/72; PULSE 49; RESP 16; O2SAT 94
[2025-03-23] MEDS: methylPREDNISolone sod succ 125 mg/2 mL INJ IVP (10:43)
[2025-03-23] MEDS: diphenhydrAMINE 50 mg/mL SDV 1mL IVP (10:43)
[2025-03-23 10:57] LABS: Alanine Aminotransferase 28 U/L (0-41); Albumin Level 3.9 g/dL (3.5-5.2); Alkaline Phosphatase 65 U/L (40-130); Anion Gap 16.1 (5-19); Aspartate Amino Transferase 20 U/L (0-40); Blood Urea Nitrogen 16 mg/dL (8-23); Calcium 9.0 mg/dL (8.5-10.5); Carbon Dioxide 20 mmol/L (22-29); Chloride 98 mmol/L (98-107); Globulin 3.4 g/dL (1.3-4.6); Glucose 106 mg/dL (65-115); Osmolality Calculated 272 mOsm/kg (285-295); Potassium 4.1 mmol/L (3.5-5.1); Sodium 130 mmol/L (136-145); Total Protein 7.3 g/dL (6.6-8.7)
[2025-03-23 11:16] VITALS: PULSE 49; O2SAT 97
[2025-03-23] MEDS: iohexol 350 mg/mL 500 mL Btl (per mL) IV (11:19)
[2025-03-23 12:09] VITALS: BP 137/82; PULSE 53; O2SAT 99
== END 2025-03-23 12:22 | disposition left against medical advice (07) ==
PROVIDERS: Emergency Provider Physician Assistant; PCP Family Medicine
DX: T78.3XXA Angioneurotic edema, initial encounter (principal); T46.4X5A Adverse effect of angiotensin-converting-enzyme inhibitors, initial encounter; X58.XXXA Exposure to other specified factors, initial encounter; Z79.84 Long term (current) use of oral hypoglycemic drugs; F17.210 Nicotine dependence, cigarettes, uncomplicated; E11.9 Type 2 diabetes mellitus without complications; I10 Essential (primary) hypertension
CPT/HCPCS: 36415; 70491; 80053; 85025; 96372; 96374; 96375; 99285; J0169; J1200; J2919

== ENCOUNTER 2025-03-28 08:03 | Oncology outpatient (recurring) (ONCR) | payer OTHER, SELFPAY ==
[2025-03-28 08:38] LABS: Hematocrit 43.0 % (37-53); Hemoglobin 14.60 g/dL (11.27-16.99); Mean Corpuscular HGB Conc 34.0 g/dL (30-55); Mean Corpuscular Hemoglobin 30.0 pg (27-33); Mean Corpuscular Volume 88.3 fl (82-101); Nucleated Red Blood Cells % 0 %; Platelet Count 364 10^3/cmm (157-399); Red Blood Count 4.87 10^6/uL (3.85-5.65); White Blood Count 8.74 10^3/uL (3.29-11.43)
[2025-03-28 08:50] LABS: Alanine Aminotransferase 32 U/L (0-41); Albumin Level 4.1 g/dL (3.5-5.2); Alkaline Phosphatase 86 U/L (40-130); Aspartate Amino Transferase 26 U/L (0-40); Blood Urea Nitrogen 17 mg/dL (8-23); Calcium 9.4 mg/dL (8.5-10.5); Carbon Dioxide 24 mmol/L (22-29); Chloride 97 mmol/L (98-107); Globulin 3.8 g/dL (1.3-4.6); Glucose 112 mg/dL (65-115); Magnesium 2.3 mg/dL (1.7-2.3); Osmolality Calculated 276 mOsm/kg (285-295); Sodium 132 mmol/L (136-145); Total Protein 7.9 g/dL (6.6-8.7)
[2025-03-28 08:52] LABS: Anion Gap 15.9 (5-19); Potassium 4.9 mmol/L (3.5-5.1)
[2025-03-28 10:06] VITALS: BP 150/87; PULSE 61; RESP 18; TEMP 36.5; O2SAT 99
== END 2025-04-25 23:59 | disposition home or self-care (01) ==
PROVIDERS: PCP Family Medicine; Visit Provider Internal Medicine
DX: C18.4 Malignant neoplasm of transverse colon (principal); F17.210 Nicotine dependence, cigarettes, uncomplicated; E11.9 Type 2 diabetes mellitus without complications; I10 Essential (primary) hypertension; E66.9 Obesity, unspecified; Z68.30 Body mass index [BMI] 30.0-30.9, adult; Z79.899 Other long term (current) drug therapy; Z95.828 Presence of other vascular implants and grafts
CPT/HCPCS: 80053; 83735; 85025; 99213